=== PATIENT | female | born 1995 | race Caucasian/White ===

== ENCOUNTER 2018-05-10 07:44 | Emergency (ER) | payer SELFPAY ==
[~2018-05-10] VITALS: Ht 165.1 cm; Wt 136.0 kg
[2018-05-10 08:54] VITALS: BP 120/64
== END 2018-05-10 09:23 | disposition home or self-care (01) | DRG 563 ==
LOC: ED 07:44
DX: S63.635A Sprain of interphalangeal joint of left ring finger, initial encounter (principal); M79.645 Pain in left finger(s); X50.1XXA Overexertion from prolonged static or awkward postures, initial encounter; Y93.K9 Activity, other involving animal care; Y92.009 Unspecified place in unspecified non-institutional (private) residence as the place of occurrence of the external cause

== ENCOUNTER 2019-05-18 15:46 | Emergency (ER) | payer OTHER ==
[~2019-05-18] VITALS: Ht 165.1 cm; Wt 125.0 kg
[2019-05-18] MEDS ORDERED: IBUPROFEN600 MG PO (17:55)
[2019-05-18 18:00] VITALS: BP 144/74
== END 2019-05-18 18:00 | disposition home or self-care (01) | DRG 552 ==
LOC: ED 15:46
DX: S16.1XXA Strain of muscle, fascia and tendon at neck level, initial encounter (principal); S43.401A Unspecified sprain of right shoulder joint, initial encounter; X50.0XXA Overexertion from strenuous movement or load, initial encounter; Y99.0 Civilian activity done for income or pay

== ENCOUNTER 2021-07-29 13:45 | Emergency (ER) | payer OTHER ==
[~2021-07-29] VITALS: Ht 165.1 cm; Wt 113.0 kg
[~2021-07-29 13:45] MED LIST: IBUPROFEN600 MG PO
[2021-07-29 19:03] LABS: HEMATOCRIT 42.7 % (37.0-47.0); MEAN CELL VOLUME 85.6 fL CALC (80.0-100.0); MEAN CORPUSCULAR HGB 28.1 pG CALC (26.0-32.0); MEAN CORPUSCULAR HGB CONC 32.8 g/dL CAL (32.0-36.0); NEUT# 6.74 thou/uL (2.00-7.15); RED BLOOD COUNT 4.99 mill/uL (4.20-5.60); RED CELL DISTRI WIDTH 12.4 % (11.5-15.5)
[2021-07-29 19:20] LABS: ALBUMIN 4.2 g/dL (3.2-5.0); ALKALINE PHOSPHATASE 71 u/l (38-126); ANION GAP 11 (6-22 (CALC)); BILIRUBIN, TOTAL 0.5 mg/dL (0.0-1.4); BUN 9 mg/dL (7-17); BUN/CREATININE RATIO 14 (12-20 (CALC)); CARBON DIOXIDE 30 mmol/l (22-30); CHLORIDE 101 mmol/l (95-108); CREATININE 0.6 mg/dL (0.5-1.0); GFR > 60 ML/MIN (>=60 (CALC)); GFR FOR AFR.AMER. > 60 ML/MIN (>=60 (CALC)); POTASSIUM 4.2 mmol/l (3.5-5.1); SGOT/AST 18 u/l (14-36); SODIUM 138 mmol/l (137-146); TOTAL PROTEIN 7.8 g/dL (6.3-8.2)
[2021-07-29] MEDS ORDERED: MECLIZINE25 MG PO (20:35)
[2021-07-29] MEDS ORDERED: FIORICET PO (20:35)
[2021-07-29] MEDS ORDERED: ONDANSETRON4 MG PO (20:35)
[2021-07-29 20:45] VITALS: BP 121/59
== END 2021-07-29 20:57 | disposition home or self-care (01) | DRG 149 ==
LOC: ED 13:45
PROVIDERS: Family Medicine
DX: R42 Dizziness and giddiness (principal); R51.9 Headache, unspecified; Z20.822 Contact with and (suspected) exposure to COVID-19

== ENCOUNTER 2021-08-25 11:37 | Emergency (ER) | payer OTHER ==
[~2021-08-25] VITALS: Ht 165.1 cm; Wt 113.6 kg
[~2021-08-25 11:37] MED LIST changes: +FIORICET PO; +MECLIZINE25 MG PO; +ONDANSETRON4 MG PO
[2021-08-25 12:44] LABS: HEMOGLOBIN 13.2 g/dl (12.0-16.0); IMMATURE GRANULOCYTES 0.1 % (0.0-5.0); MEAN CELL VOLUME 86.2 fL CALC (80.0-100.0); MEAN CORPUSCULAR HGB 28.4 pG CALC (26.0-32.0); NEUT# 5.3 thou/uL (2.00-7.15); RED BLOOD COUNT 4.64 mill/uL (4.20-5.60); RED CELL DISTRI WIDTH 12.5 % (11.5-15.5)
[2021-08-25 13:00] LABS: ALBUMIN 4.1 g/dL (3.2-5.0); ALKALINE PHOSPHATASE 58 u/l (38-126); BILIRUBIN, TOTAL 0.3 mg/dL (0.0-1.4); BUN 9 mg/dL (7-17); BUN/CREATININE RATIO 13 (12-20 (CALC)); CHLORIDE 106 mmol/l (95-108); CREATININE 0.7 mg/dL (0.5-1.0); GFR > 60 ML/MIN (>=60 (CALC)); GFR FOR AFR.AMER. > 60 ML/MIN (>=60 (CALC)); POTASSIUM 3.9 mmol/l (3.5-5.1); SGOT/AST 21 u/l (14-36); SODIUM 142 mmol/l (137-146); TOTAL PROTEIN 7.7 g/dL (6.3-8.2)
[2021-08-25 13:09] LABS: ANION GAP 16 (6-22 (CALC)); CARBON DIOXIDE 24 mmol/l (22-30)
[2021-08-25 13:31] VITALS: BP 99/55
[2021-08-25] MEDS ORDERED: IMITREX50 MG PO (13:53)
[2021-08-25 14:01] VITALS: BP 91/47
[2021-08-25 14:21] VITALS: BP 114/54
[2021-08-25 14:32] VITALS: BP 126/67
[2021-08-25 14:58] VITALS: BP 126/67
== END 2021-08-25 15:16 | disposition home or self-care (01) | DRG 103 ==
LOC: ED 11:37
PROVIDERS: Family Medicine
DX: R51.9 Headache, unspecified (principal); R40.4 Transient alteration of awareness

== ENCOUNTER 2021-09-13 13:02 | Emergency (ER) | payer OTHER ==
[~2021-09-13] VITALS: Ht 165.1 cm; Wt 118.0 kg
[~2021-09-13 13:02] MED LIST changes: +IMITREX50 MG PO
[2021-09-13 15:06] VITALS: BP 145/98
== END 2021-09-13 15:06 | disposition home or self-care (01) | DRG 605 ==
LOC: ED 13:02
DX: S60.221A Contusion of right hand, initial encounter (principal); W22.8XXA Striking against or struck by other objects, initial encounter; Y93.89 Activity, other specified

== ENCOUNTER 2021-12-03 11:31 | Emergency (ER) | payer SELFPAY ==
[~2021-12-03] VITALS: Ht 165.1 cm; Wt 122.0 kg
[2021-12-03 11:54] VITALS: BP 94/54
[2021-12-03 12:01] VITALS: BP 101/44
[2021-12-03 12:30] VITALS: BP 109/66
[2021-12-03 13:01] VITALS: BP 109/66
[2021-12-03 13:18] VITALS: BP 109/66
== END 2021-12-03 13:20 | disposition home or self-care (01) | DRG 605 ==
LOC: ED 11:31
DX: S00.03XA Contusion of scalp, initial encounter (principal); R55 Syncope and collapse; W19.XXXA Unspecified fall, initial encounter